=== PATIENT | male | born 1980 | race Asian ===

== ENCOUNTER 2018-05-15 09:22 | Emergency (ER) | payer OTHER ==
[~2018-05-15] VITALS: Ht 170.2 cm; Wt 68.2 kg
[2018-05-15] MEDS ORDERED: NAPR-50 PO (09:29)
[2018-05-15] MEDS ORDERED: CYCL10TA PO (09:29)
[2018-05-15] MEDS ORDERED: PRED20TA PO (10:30)
[2018-05-15] MEDS ORDERED: GABA-1171 PO (10:30)
[2018-05-15 10:34] VITALS: BP 112/59
== END 2018-05-15 10:39 | disposition home or self-care (01) ==
LOC: M ED 09:22
DX: M54.16 Radiculopathy, lumbar region (principal); Z79.1 Long term (current) use of non-steroidal anti-inflammatories (NSAID); Z79.899 Other long term (current) drug therapy

== ENCOUNTER → 2018-08-31 | Outpatient (CLI) | payer OTHER ==
[~2018-08-31] MED LIST: CYCL10TA PO; GABA-1171 PO; NAPR-837 PO; PRED20TA PO; PROHANCE 279.3MG/ML 15ML VIAL (A9576) As Ordered ONE
--- NOTE | 2018-08-31 16:09 | REP ---
MR BRAIN WITHOUT AND WITH CONTRAST: HISTORY: Migraine headaches. There are no areas of abnormal signal intensity in the brain. There is no intraparenchymal hemorrhage, infarct , mass or midline shift. There is abnormal enhancement. The ventricular system is normal in appearance. There is no extracerebral collection. Mucosal thickening is present in the ethmoid and maxillary sinuses. IMPRESSION:There is no intracranial lesion. Electronically Signed by Eric Seo MD 08/31/2018 04:18 P
== END ==
LOC: M RAD 14:25
PROVIDERS: ATTEND Family Medicine
DX: G43.909 Migraine, unspecified, not intractable, without status migrainosus (principal)
CPT/HCPCS: 70553; A9576

== ENCOUNTER 2018-12-08 20:15 | Emergency (ER) | payer OTHER ==
[~2018-12-08] VITALS: Ht 170.2 cm; Wt 70.5 kg
[~2018-12-08 20:15] MED LIST changes: -PROHANCE 279.3MG/ML 15ML VIAL (A9576) As Ordered ONE
[2018-12-08] MEDS ORDERED: CELECOXIB PO (20:52)
[2018-12-08] MEDS ORDERED: FLON1SPR NARES ×2 (20:52→21:58)
[2018-12-08] MEDS ORDERED: CLAR2.5T PO (20:52)
[2018-12-08] MEDS ORDERED: KETOROLAC 0.5% OPHTH SOLN OU ONE (21:30)
[2018-12-08] MEDS ORDERED: methylPREDNISolone INJ 125 MG/2 ML VIAL (J2930) IM ONE (21:30)
[2018-12-08 22:06] VITALS: BP 125/85
== END 2018-12-08 22:19 | disposition home or self-care (01) ==
LOC: M ED 20:15
DX: J30.9 Allergic rhinitis, unspecified (principal); H10.13 Acute atopic conjunctivitis, bilateral; M54.9 Dorsalgia, unspecified; Z79.899 Other long term (current) drug therapy
CPT/HCPCS: 96372; 99284; J2930

== ENCOUNTER → 2019-04-07 | Outpatient (CLI) | payer OTHER ==
[~2019-04-07] MED LIST changes: +CELECOXIB PO; +CLAR2.5T PO; +FLON1SPR NARES
--- NOTE | 2019-04-15 17:45 | SLEEPCENT ---
DATE OF PROCEDURE: 04/07/2019 INTERPRETATION Nocturnal polysomnography was performed for evaluation of sleep apnea syndrome symptoms consisting of excessive daytime sleepiness, observed apnea, gasping respirations, morning headaches, nonrestorative sleep. A total of 6 hours and 56 minutes of data was reviewed yet only 100 minutes of sleep were identified. No slow-wave sleep or REM sleep was identified. Sleep efficiency was markedly decreased at 24.3%. EKG showed normal sinus rhythm with an average heart rate of 54 beats per minute. Speeding and slowing was noted surrounding some respiratory events. No epileptiform discharge observed. There were 40 respiratory events identified of 10 seconds in duration for an apnea-hypopnea index (AHI) 24.4. The vast majority of the events were central in nature. Respiratory event related arousal (RERA) index was 5.4 giving a total respiratory disturbance index (RDI) of 29.4. Mean oxygen saturation for the study was 95% with a minimum recorded value of 91%. Arousal index was 40.2 with the majority of arousals breathing related. Periodic limb movement index was 13.2. IMPRESSION: 1. Central sleep apnea, moderate, in limited study with only 100 minutes of sleep recorded. No slow-wave or REM sleep observed. 2. Periodic limb movements, mild. 3. Markedly decreased sleep efficiency. RECOMMENDATIONS Recommend the patient return to the clinic to determine the etiology of central sleep apnea. Additionally it is difficult to consider this a valid diagnostic study with limited sleep. Options include repeating the polysomnography if a plan can be devised for better sleep efficiency so more sleep time can be observed. Pending further discussion and evaluation, alcohol and sedative usage should be avoided and care should be taken when operating motor vehicles. [facility]
== END ==
LOC: M SLEEP 19:31
PROVIDERS: ATTEND Internal Medicine Pulmonary Disease
DX: G47.31 Primary central sleep apnea (principal); G47.61 Periodic limb movement disorder; Z72.821 Inadequate sleep hygiene

== ENCOUNTER → 2019-05-01 | Outpatient (CLI) | payer OTHER ==
--- NOTE | 2019-05-11 14:34 | SLEEPCENT ---
DATE: 05/01/2019 INTERPRETATION: Nocturnal polysomnography was repeated for the evaluation of sleep apnea syndrome symptoms consisting of excessive daytime sleepiness, observed apnea, gasping respirations, morning headaches, and nonrestorative sleep. Mr. Baugh had previously had a study on 04/07/2019 which showed moderate central sleep apnea, but only 100 minutes of data was available and no slow-wave or rapid eye movement (REM) sleep was observed. He typically takes sleeping medications and we asked him to return to the laboratory and take medications as he does this at home. Those medications include trazodone 50 mg and rizatriptan benzoate 10 mg p.r.n. Other medications he is on include celecoxib 200 mg daily and aripiprazole 2 mg daily. A total of 7 hours and 37 minutes of data was reviewed with 362.5 minutes of sleep identified. Sleep latency was 13.5 minutes. REM latency was prolonged at 363.5 minutes. No slow-wave sleep was observed. Sleep efficiency was 80.3%. EKG showed normal sinus rhythm with an average heart rate of 56 beats per minute. Speeding and slowing was noted surrounding some respiratory events. No epileptiform discharge observed. There were 50 respiratory events identified of 10 seconds or longer. The events were predominantly central or mixed with only 5 obstructive events seen. The overall index is 8.3. Interestingly, all of the mixed events started with a prolonged central event with very slow minimal fluctuations of the chest and abdominal bands before he took a breath. These events commonly lasted at least or close to 2 minutes with desaturations going down to the 60s and also lasted for a good portion of the apnea. Arousal index was 12.9 with a majority arousals breathing related. Mean oxygen saturation for the study 94% with a minimum recorded value of 68%. Periodic limb movement index was 1.7. Minimal snoring was seen. It should be noted that all of his events occurred when he was supine. When he slept on either side he did not have any events and his REM sleep was achieved when he was on a side. IMPRESSION: 1. Central sleep apnea, mild. 2. Significant hypoxemia with this associated with the prolonged central/mixed events. RECOMMENDATIONS: Recommend the patient return to the clinic to discuss these results. [facility]
== END ==
LOC: M SLEEP 20:00
PROVIDERS: ATTEND Internal Medicine Pulmonary Disease
DX: G47.31 Primary central sleep apnea (principal); G47.34 Idiopathic sleep related nonobstructive alveolar hypoventilation

== ENCOUNTER → 2019-05-03 | Outpatient (REF) | payer OTHER ==
[2019-05-03 18:39] LABS: INR 1.04; PARTIAL THROMBOPLASTIN TIME 27.8 SECONDS (25.0-38.4); PROTHROMBIN TIME 13.3 SECONDS (11.8-14.0)
== END ==
LOC: M LABDRAW1 17:33
PROVIDERS: ATTEND Orthopaedic Surgery
DX: Z01.812 Encounter for preprocedural laboratory examination (principal); M47.817 Spondylosis without myelopathy or radiculopathy, lumbosacral region

== ENCOUNTER → 2019-05-05 | Outpatient (REF) | payer OTHER ==
[2019-05-05 18:09] LABS: PLATELET COUNT, AUTOMATED 267 10^3/uL (150-450)
== END ==
LOC: M LABDRAW1 16:54
PROVIDERS: ATTEND Physical Medicine & Rehabilitation
DX: Z01.812 Encounter for preprocedural laboratory examination (principal)

== ENCOUNTER → 2019-06-27 | Outpatient (CLI) | payer OTHER ==
[~2019-06-27] MED LIST changes: +GASTROGRAFIN SOLUTION 30ML (Q9963) As Ordered ONE; +ISOVUE-370 76% 100ML VIAL (Q9967) As Ordered ONE
--- NOTE | 2019-06-27 15:51 | REP ---
Clinical: Acute lower abdominal pain. Technique: Axial contrast enhanced images from the lung bases to the pubic symphysis with coronal and sagittal re-formations using oral (per protocol) and 100 ml Isovue 370 intravenous contrast material. Findings: Lung bases are clear. Visualized heart and pericardium normal. Liver, spleen, pancreas, gallbladder, bilateral adrenal glands and kidneys are normal. The enteric system is without obstruction or acute inflammatory process. Normal terminal ileum and appendix are identified in the right lower quadrant. Pelvis demonstrates normal bladder and age appropriate prostate/seminal vesicles. No ascites. No free air. No adenopathy. Abdominal aorta without aneurysm. Musculoskeletal structures are intact. Impression: No acute abdominopelvic pathology appreciated. Electronically Signed by Raudel Mckeon MD 06/27/2019 03:43 P
== END ==
LOC: M RAD 13:41
PROVIDERS: ATTEND Physician Assistant
DX: R10.31 Right lower quadrant pain (principal)
CPT/HCPCS: 74177; Q9963; Q9967

== ENCOUNTER → 2019-07-04 | Outpatient (REF) | payer OTHER ==
[~2019-07-04] MED LIST changes: -GASTROGRAFIN SOLUTION 30ML (Q9963) As Ordered ONE; -ISOVUE-370 76% 100ML VIAL (Q9967) As Ordered ONE
== END ==
LOC: M LABDRAW1 11:25
PROVIDERS: ATTEND Physical Medicine & Rehabilitation
DX: M47.817 Spondylosis without myelopathy or radiculopathy, lumbosacral region (principal)

== ENCOUNTER → 2019-07-20 | Outpatient (CLI) | payer OTHER ==
[~2019-07-20] MED LIST changes: +CYCL-707 PO; -CYCL10TA PO; +GASTROGRAFIN SOLUTION 30ML (Q9963) As Ordered ONE; +ISOVUE-370 76% 100ML VIAL (Q9967) As Ordered ONE
--- NOTE | 2019-07-20 09:58 | REP ---
CT ABDOMEN AND PELVIS WITH ORAL AND IV CONTRAST: TECHNIQUE: Axial contrast enhanced images from the lung bases to the pubic symphysis using 100 mL Isovue 370 intravenous contrast material with multiplanar reformations. COMPARISON: 06/27/2019 Visualized lung bases are clear. The liver, spleen, adrenals, pancreas and kidneys are normal in appearance. There is no hydronephrosis bilaterally. There is no abdominal aortic aneurysm. There is no adenopathy. There is no free air or free fluid. There is no bowel wall thickening. The appendix is normal. No pelvic mass is seen. Urinary bladder is mildly distended and grossly unremarkable. IMPRESSION: Negative CT abdomen and pelvis with oral and IV contrast. The appendix is normal. No free air or free fluid. Electronically Signed by Lyndon Hector MD 07/20/2019 12:03 P
== END ==
LOC: M RAD 07:46
PROVIDERS: ATTEND Physician Assistant
DX: R10.9 Unspecified abdominal pain (principal)
CPT/HCPCS: 74177; Q9963; Q9967